=== PATIENT | male | born 1990 | race Caucasian/White ===

== ENCOUNTER 2019-07-03 15:25 | Emergency (ER) | payer OTHER ==
[~2019-07-03] VITALS: Ht 185.4 cm; Wt 124.7 kg
[2019-07-03 15:26] VITALS: BP 172/98
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
[2019-07-03] MEDS ORDERED: IBUPROFEN 800 MG TAB PO ONE (16:15)
[2019-07-03 16:28] VITALS: BP 114/71
--- NOTE | 2019-07-03 16:29 | NUR ---
Dispo and medical decision making, DC home with instructions regarding pain control with Ibuprofen and Flexeril, discussed stretching and strengthening exercises. All instructions understood by patient well, VS WNL, pain symptom controlled.
== END 2019-07-03 16:29 | disposition home or self-care (01) ==
LOC: MED 15:25
DX: R51 Headache (principal); M79.10 Myalgia, unspecified site; V89.2XXA Person injured in unspecified motor-vehicle accident, traffic, initial encounter; Y93.89 Activity, other specified; Y92.89 Other specified places as the place of occurrence of the external cause; Y99.8 Other external cause status
CPT/HCPCS: 99283

== ENCOUNTER 2020-01-01 16:46 | Emergency (ER) | payer OTHER, SELFPAY ==
[~2020-01-01] VITALS: Ht 185.4 cm; Wt 116.6 kg
--- NOTE | 2020-01-01 16:48 | NUR ---
Patient ambulated to bed 10. RN evaluating patient at bedside.
[2020-01-01 16:49] VITALS: BP 133/96
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
--- NOTE | 2020-01-01 17:58 | NUR ---
DR NOEL AT BEDSIDE EXAMINING PT
[2020-01-01] MEDS ORDERED: traMADol 50 MG TAB PO ONE (18:00)
[2020-01-01] MEDS ORDERED: ONDANSETRON 4 MG ODT PO ONE (18:00)
[2020-01-01] MEDS ORDERED: AMOXIL/CLAVULANATE 500/125 MG 1 TAB PO ONE (18:00)
[2020-01-01] MEDS ORDERED: AMOXICILLIN 500 MG CAP PO ONE (18:10)
[2020-01-01 18:21] VITALS: BP 127/88
--- NOTE | 2020-01-01 18:22 | NUR ---
Patient discharged with v/s stable. Written and verbal after care instructions given and explained. Patient alert, oriented and verbalized understanding of instructions. Ambulatory with steady gait. All questions addressed prior to discharge. ID band removed. Patient advised to follow up with PMD. Rx of AUGMENTIN, ZOFRAN, AND TRAMADOL given. Patient educated on indication of medication including possible reaction and side effects. Opportunity to ask questions provided and answered.
== END 2020-01-01 18:22 | disposition home or self-care (01) ==
LOC: EEVIPCON 16:46 → MED 16:46
DX: K04.7 Periapical abscess without sinus (principal); R05 Cough; R50.9 Fever, unspecified
CPT/HCPCS: 99284; Q0162

== ENCOUNTER 2022-08-27 16:07 | Emergency (ER) | payer OTHER ==
[~2022-08-27] VITALS: Ht 182.9 cm; Wt 130.2 kg
--- NOTE | 2022-08-27 16:21 | NUR ---
R PALM, ANTERIOR & MEDIAL FOREARM IRRIGATED WITH BETADINE X NORMAL SALINE. BLEEDING CONTROLLED.
[2022-08-27 16:34] VITALS: BP 139/92
[2022-08-27] MEDS ORDERED: IBUP-1842 PO (16:39)
[2022-08-27] MEDS ORDERED: AMOX-999 PO (16:39)
--- NOTE | 2022-08-27 16:48 | NUR ---
STERI STRIP APPLIED TO R PALM LAC, ARM WRAPPED WITH ROLLER GAUZE. + CMS. BLEEDING CONTROLLED.
[2022-08-27 17:17] VITALS: BP 132/85
== END 2022-08-27 17:17 | disposition home or self-care (01) ==
LOC: MED 16:07
DX: S61.411A Laceration without foreign body of right hand, initial encounter (principal); W55.01XA Bitten by cat, initial encounter; Y93.89 Activity, other specified; Y92.89 Other specified places as the place of occurrence of the external cause; Y99.8 Other external cause status
CPT/HCPCS: 73130; 90471; 90715; 99283